=== PATIENT | male | born 1970 | race African-American/Black ===

== ENCOUNTER → 2017-06-22 | Outpatient (CLI) | payer BC | LOC: ULTRA 09:56 | DX: M79.89 Other specified soft tissue disorders (principal); R60.9 Edema, unspecified ==

== ENCOUNTER → 2018-08-14 | Outpatient (CLI) | payer BC | LOC: CAT 08:08 | DX: K80.20 Calculus of gallbladder without cholecystitis without obstruction (principal); N28.1 Cyst of kidney, acquired; N20.0 Calculus of kidney; N28.89 Other specified disorders of kidney and ureter; K76.9 Liver disease, unspecified; K42.9 Umbilical hernia without obstruction or gangrene; M47.816 Spondylosis without myelopathy or radiculopathy, lumbar region ==

== ENCOUNTER → 2020-11-02 | Outpatient (CLI) | payer BC ==
[~2020-11-02] MED LIST: AMLODIPINE BESY10 MG PO; ASA81BEC PO; MULTI VITAMIN1 EACH PO; SILDENAFIL20 MG PO
[2020-11-02 13:03] LABS: HEMATOCRIT 44.1 % (42.0-52.0); HEMOGLOBIN 14.7 gm/dL (14.0-18.0); MCH 28.4 pg (26.0-34.0); MCHC 33.3 g/dL (28.0-37.0); MCV 85.3 fL (80.0-100.0); RBC 5.17 mil/uL (4.50-6.00); RDW 13.7 % (10.5-14.5); WBC 2.8 thou/uL (4.0-11.0)
[2020-11-02 13:22] LABS: ALBUMIN 3.9 g/dL (3.4-5.0); CALCIUM 8.8 mg/dL (8.5-10.1); CREATININE 1.4 mg/dL (0.7-1.3); POTASSIUM 3.5 mmol/L (3.5-5.1); TOTAL BILIRUBIN 0.7 mg/dL (0.2-1.0); TOTAL PROTEIN 7.3 g/dL (6.4-8.2)
--- NOTE | 2020-11-02 14:33 | EKG ---
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: URVASHI : 1970 Requested By: Stanislav Huddleston Order Number: [id number] MD: Papito Newman Measurements Intervals [place] Rate: 69 P: 27 NC: 222 QRS: -34 QRSD: 110 T: -6 QT: 415 QTc: 445 Interpretive Statements Sinus rhythm Prolonged NC interval Inferior infarct, old Compared to ECG 10/09/1995 16:40:00 First degree AV block now present Myocardial infarct finding now present T-wave abnormality no longer present Electronically Signed On 11-02-2020 14:33:16 CDT by Papito Newman [email or web address] <ELECTRONICALLY SIGNED> By: Papito Newman MD, [facility] 11/02/20 1433 130 02 Papito Newman MD, [facility] /EPI
[2020-11-02 23:06] LABS: GLYCOHEMOGLOBIN (HGB A1C) 4.9 % (4.8-5.6)
== END ==
LOC: PAC 11:47
PROVIDERS: ATTEND Surgery
DX: Z01.812 Encounter for preprocedural laboratory examination (principal)

== ENCOUNTER 2020-11-05 09:05 | Inpatient (IN) | payer BC ==
[2020-11-05] VITALS (8 sets, daily range): BP systolic 155–164; BP diastolic 90–99
[~2020-11-05] VITALS: Ht 190.5 cm; Wt 135.6 kg
--- NOTE | ~2020-11-05 | O ---
[facility] [place] [address] OPERATIVE REPORT Name: SINA ENRIQUEZ [facility] [address] Room #: 463-P [facility] IN .R.#: [id number] Admission: 11/05/20 Attend Phys: Stanislav Huddleston MD Discharge: Date of : 68 Report #: [id number] THIS REPORT FOR: cc: Shane Kingsley,Stanislav Cassidy MD ~ cc: Shane Kingsley DO DATE OF SERVICE: 11/05/2020 PREOPERATIVE DIAGNOSES: 1. Morbid obesity. 2. Hypertension. 3. Arthritis. POSTOPERATIVE DIAGNOSES: 1. Morbid obesity. 2. Hypertension. 3. Arthritis. OPERATIVE PROCEDURES DONE: 1. Laparoscopic vertical sleeve gastrectomy. 2. Upper GI endoscopy. OPERATING SURGEON: Stanislav Huddleston MD INDICATIONS FOR THE PROCEDURE: The patient is a 50-year-old male who presented some features of morbid obesity. He was noted to have a weight of 314 pounds with a BMI of 39 with the above listed comorbidities. The patient was advised laparoscopic vertical sleeve gastrectomy and possible hiatal hernia repair. The patient showed understanding and agreed to proceed. PROCEDURE IN DETAIL: After explaining to the patient in detail and informed consent was obtained, the patient was identified in the preoperative holding area. The patient was transferred to the operating room and was placed in supine position. Sequential compressive devices were placed for DVT prophylaxis. Preoperative antibiotics were given. After induction of anesthesia, the abdomen was prepped and draped in a sterile fashion. Through a left upper quadrant 1 cm incision, using Optiview technique peritoneal cavity was entered and pneumoperitoneum was created. Thereafter under direct vision, another 5 mm trocar was placed in the left mid abdomen and a 12 mm trocar was placed in the right mid abdomen. Another 5 mm trocar was placed in the right subcostal region and through a 1 cm incision in the epigastrium, a Emma retractor was introduced and the left lobe of the liver was retracted. Upon initial inspection, I did not see any obvious evidence of a hiatal hernia. The stomach appeared large. I started taking down the gastroepiploic vessels using EnSeal. [facility] [address] [place] [address] OPERATIVE REPORT Name: SINA ENRIQUEZ Rhea [facility] [address] Room #: 463-P [facility] IN .R.#: [id number] Admission: 11/05/20 Attend Phys: Stanislav Huddleston MD Discharge: Date of : 68 Report #: [id number] Continued superiorly, the short gastric vessels were taken down, the gastrophrenic ligament was divided and distally, the gastroepiploic vessels were taken down up to about 4 cm proximal to the pylorus. At this point, I had requested the medicine technologist to place a ViSiGi tube into the stomach inadvertently regular and orogastric tube was placed, which was not aware until the end of the procedure. I started using this as a guide. I then stapled the stomach, although to create a loose sleeve around this bougie. Once the sleeve gastrectomy was done, I requested the insufflation of the sleeve and at this point I was told that the patient had a regular OG tube had not the ViSiGi tube that I normally use for the sleeve gastrectomy. At this point, the OG tube was removed. I performed an upper GI endoscopy to evaluate the lumen of the stomach. The lumen appeared normal. At the level of the incisura, I was able to easily pass the scope, but there could be a slight narrowing in this area thus the sleeve appeared normal, an air leak test was performed that was negative and the stomach was suctioned out, scope was removed. Absolute hemostasis was ensured. Thorough saline irrigation was given and the 12 mm port site incision was closed with 0 Vicryl for the fascia. Skin was closed with a 4-0 Monocryl for the incisions and Dermabond was applied. The patient was stable at the end of the procedure. The patient was awoken from anesthesia and was transferred to the recovery room in stable condition. Estimated blood loss was approximately 10 mL. CONDITION: The patient is stable. Fluids given per Anesthesia notes. SPECIMEN SENT: Sleeve gastrectomy specimen. COMPLICATIONS: None. ANESTHESIA: General anesthesia. By: [id number] Stanislav Huddleston MD /nt
--- NOTE | 2020-11-05 16:59 | NUR ---
ASSUMED PT CARE UPON TRANSFER TO UNIT AROUND 1545. PATIENT IS A&OX4 AND ABLE TO MAKE NEEDS KNOWN. PATIENT REPORTS PAIN OF 10/10 IN THE ABDOMEN, SLEEPING UPON REASSESSMENT. 5 LAP SITES ARE C/D/I. SIGNIFICANT OTHER AT BEDSIDE. IV PATENT, FLUIDS INFUSING. FALL PRECAUTIONS ARE IN PLACE. PATIENT REMAINS NPO. SCD'S ARE ON.
--- NOTE | 2020-11-06 02:27 | NUR ---
ASSUMED PT CARE 1909. PT WAS ALERT AND ORIENTED X4. PT INFORMED ON WHEN TO EXPECT NEXT PAIN MED. PT HAD FIVE LAP SITE WHICH ARE DRY AND INTACT WITH NO SIGN OF REDNESS. PT AMBULATED IN THE HALLWAY WITH MIN ASSIST. AND GB AFTER PAIN WAS MANAGED. PT HAD SCDS AND APOLLO HOSE IN PLACE. PT DID NOT VOICE ANY CONCERNS. FALL PRECAUTIONS IN PLACE.
[2020-11-06 08:20] VITALS: BP 163/115
--- NOTE | 2020-11-06 11:59 | NUR ---
PT ADMITTED RELATED TO LAP SLEEVE GASTRECTOMY W/POSSIBLE HIATAL HERNIA REPAIR. CM REVIEWED CHART AND SPOKE WITH CARE TEAM. CM MET WITH PT AT BEDSIDE THIS DAY. PT APPEARED TO BE A&O X4. CM ROLE INTRODUCED. PT INDICATED HE RESIDES IN A DUPLEX WITH HIS FIANCE. PT INDICATED NO STEPS AND ALL NEEDS ON 1 LEVEL. 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 PT'S PCP IS DR. SENAIT HOUSE. PT REPORTS NO HH OR OP THERAPY HX. PT INDICATED HE PLANS TO RETURN HOME ONCE MEDICALLY STABLE. CM FOLLOWING SHOULD ANY DC NEEDS ARISE.
[2020-11-06 16:29] VITALS: BP 103/109
--- NOTE | 2020-11-06 18:10 | NUR ---
ASSUMED CARE OF PATIENT AT SHIFT CHANGE. ASSESSMENT CHARTED. MEDS ADMINISTERED PER EMAR. BP STILL ELEVATED BUT UNDER 180 SYSTOLIC; PROVIDER AWARE. PATIENT IS A&OX4 AND MAKES NEEDS KNOWN, STEADY ON FEET. PATIENT IS POST OP DAY ONE FROM GASTRIC SLEEVE SURGERY. VOICING BETTER PAIN CONTROL THIS SHIFT. PATIENT HAD GASTRIC STUDY W NO ISSUES; NORMAL FINDINGS. TRANSITIONED TO STAGE 1 DIET AND TOLERATING WELL; 1 EPISODE OF NAUSEA W 10ML OF CLEAR FROTHY EMESIS. C/O ABDOMINAL CRAMPS RELIEVED BY AMBULATING AND BENTYL SYRUP. PROVIDER MADE AWARE OF PATIENT WANTING TO STAY ONE MORE NIGHT. NOW TAKING NORCO SYRUP PROVIDING PARTIAL PAIN RELIEF. LAP SITES REMAIN C/D/I (X5). FLUIDS CONTINUE INFUSING ON R AC W NO ISSUES. EDUCATED ON TAKING THE 1 OZ OF FLUID Q 10 MINS; AWARE AND COMPLIANT. DENIES CHEST PAIN. DENIES OTHER NEEDS. VOIDING BY URINAL. CONTINUING TO MONITOR PATIENT THIS SHIFT. WILL ENDORSE TO ONCOMING NURSE
[2020-11-06 20:06] VITALS: BP 180/111
--- NOTE | 2020-11-07 01:34 | NUR ---
ASSUMED PT AT 1900. PT IS ALERT AND ORIENTED x4. PT HAS FIVE LAP SITES WHICH ARE C/D/I. PT DENIES ANY FORM OF NAUSEA AND VOMITING. PT AMBULATED A LONGER DISTANCE WITHOUT ANY ASSISTANCE AND WITHOUT C/O PAIN. PT C/O OF ABD CRAMPS AND CONGESTION WHICH WAS MANAGED BY MEDS. HAD A LARGE BM WHICH MADE PT HAPPY WITH THE PROGRESS SO FAR ADN PER PT"MORE COMFORTABLE TO GO HOME NOW". PT FEELS PAIN IS UNDER CONTROL NOW. FALL PRACAUTIONS IN PLACE AND CALL LIGHT WITHIN REACH. WILL CONTINUE TO MONITOR.
[2020-11-07 05:00] VITALS: BP 141/111
[2020-11-07 07:39] VITALS: BP 166/103
[2020-11-07 08:15] VITALS: BP 166/103
--- NOTE | 2020-11-07 12:58 | NUR ---
PATIENT STAYED ONE EXTRA OVERNIGHT FOR ASSURANCE. NO ISSUES WERE REPORTED AND PATIENT WAS STABLE FOR DISCHARGE. PROVIDER WAS NOTIFIED AND FINALIZED DISCHARGE ORDERS. PATIENT WAS GIVEN DC INSTRUCTIONS AND PRESCRIPTION INFO. 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
--- NOTE | 2020-11-09 18:06 | PATH ---
[facility] [address] [place] [address] PATHOLOGY RPT PROCEDURE Name: MINASINA Wilkerson III Room #: 463-P [facility] IN .R.#: [id number] Admission: 11/05/20 Date of : 68 Discharge: 11/07/20 Report #: [id number] Path Case #: [id number] [facility] Accession Number: [id number] . 01 Material submitted: . gastrointestinal site - GASTRIC SLEEVE . 01 Clinical history: . LAPAROSCOPIC SLEEVE GASTRECTOMY(++) MORBID OBESITY,ESSENTIAL HYPERTENSION,ARTHRITIS . 02 Diagnosis: Stomach, gastric sleeve, laparoscopic sleeve gastrectomy: - Mild active gastritis. - Negative for intestinal metaplasia or atrophy. - Helicobacter pylori immunohistochemical stain pending, to be reported as an addendum. . (IUV:pit; 11/09/2020) QTP 11/09/2020 1447 Local . 02 Electronically signed: . Chelo Collazo MD, Pathologist NPI- [id number] . 01 Gross description: . The specimen is received in formalin, labeled "Sina Enriquez III, gastric sleeve ". Received is a partial gastrectomy specimen with a stapled margin of resection measuring 25.7 x 5.3 x 4.2 cm in greatest dimensions. The serosal surface is pink-lozano, smooth to pink-bhardwaj, ragged in appearance. Opening the specimen reveals light lozano to pink-lozano mucosa with normal rugal folds. No distinct nodules or lesions are noted grossly. The specimen is submitted representatively in cassette A1. (CAA; 11/06/2020) QAC/QAC 11/06/2020 1706 Local . 02 Pathologist provided ICD-10: K29.70 . 02 CPT . 640836 Specimen Comment: A courtesy copy of this report has been sent to [phone] Specimen Comment: [id number] Specimen Comment: Report sent to / DR HOUSE Performed at: 01 [place] [address] PATHOLOGY RPT PROCEDURE Name: SINA ENRIQUEZ III Room #: 463-P [facility] IN M.R.#: [id number] Admission: 11/05/20 Date of : 68 Discharge: 11/07/20 Report #: [id number] Path Case #: [id number] [address] [facility] [address], [place], [place] [id number] MD Juni Thomas MD Phone: [phone] Performed at: [address] [id number] MD Chelo Collazo MD Phone: [phone]
== END 2020-11-07 10:49 | disposition home or self-care (01) | DRG 621 ==
LOC: OR 09:05 → TBA 09:48 → PRE 10:30 → EDSTATUS 12:24 → PRE 12:29 → 4W 15:31
PROVIDERS: ADMIT Surgery; ATTEND Surgery
PROC: 0DJ08ZZ Inspection of Upper Intestinal Tract, Via Natural or Artificial Opening Endoscopic (ICD-10-PCS; principal; 2020-11-05)
PROC: 0DB64Z3 Excision of Stomach, Percutaneous Endoscopic Approach, Vertical (ICD-10-PCS; principal; 2020-11-05)
DX: E66.01 Morbid (severe) obesity due to excess calories (principal); Z68.37 Body mass index [BMI] 37.0-37.9, adult; I10 Essential (primary) hypertension; M19.90 Unspecified osteoarthritis, unspecified site
CPT/HCPCS: 10047; 50010; 50101; 50222; 50386; 50555; 50558; 51489; 52265; 52266; 53307; 54022; 54118; 56462; 56525; 56526; 57092; 58574; 58587; 58588; 58869; 58870; 58872; 62110; 62900; 70005